=== PATIENT | female | born 1985 | race Hispanic/Latino ===

== ENCOUNTER 2017-02-27 12:34 | Emergency (ER) | payer SELFPAY ==
[2017-02-27 13:21] VITALS: BP 126/99
[2017-02-27 14:30] LABS: Bilirubin,Urine Negative (Negative); Blood,Urine Negative (Negative); Ketones,Urine Negative (Negative)
[2017-02-27 14:31] LABS: Bacteria,Urine 1+ /HPF (Negative); Leukocyte Esterase,Urine Moderate (Negative); Mucus,Urine 1+ /HPF; Nitrite,Urine Negative (Negative); Protein,Urine <15 mg/dL mg/dL (Negative); Urobilinogen,Urine < 2.0 mg/dL (<2.0)
[2017-02-27] MEDS ORDERED: NORCO 5/325 PO ONE (16:06)
--- NOTE | 2017-02-27 19:40 | Emergency Department Report ---
Entered by CHANDNI CROW, acting as scribe for DK RIVAS PA. ED Back Pain/Injury HPI - General Chief Complaint: Back Pain/Injury Stated Complaint: ARM/BACK PAIN Source: patient, family Mode of arrival: Ambulatory Limitations: No Limitations - History of Present Illness Initial Comments: 31 female with PMHx of hypertension, headaches and anxiety, presents to the ED c /o back pain beginning one month ago. 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 Associated symptoms include arm pain but denies fever, chills and bowel and bladder incontinence. Rates back pain 9/10 and arm pain 7/10 in severity. Patient describes pain in arm as "shooting muscles spam that move up her arm." Pain is back is cramping NKDA. Denies any abdominal pain. Denies any trauma or fall. Denies any urinary frequency urgency or burning. She says she did not take any medication for pain. Determined that she is allergic to ibuprofen. MD Complaint: back pain Onset/Timin -: Gradual, month(s) Similar Symptoms Previously: Yes Place: work Radiation: none Severity: severe Severity scale (0 -10): 9 Quality: burning Improves With: none Worsens With: none Context: while lifting, turning/twisting Associated Symptoms: other (arm pain). denies: confusion, weakness, chest pain , numbness, difficulty walking, cough, difficulty urinating, incontinence, fever /chills, constipation, headaches, abdominal pain, loss of appetite, malaise, nausea/vomiting, rash, seizure, shortness of breath, syncope - Related Data Previous Rx's Medication Instructions Recorded Last Taken Type Acetaminophen/Codeine [Tylenol #3] 1 tab PO Q6H PRN #20 tab 08/07/13 Unknown Rx Ondansetron [Zofran] 4 mg PO ONCE #20 tablet 08/07/13 Unknown Rx Sulfamethoxazole/Trimethoprim 1 each PO BID #14 tablet 02/27/17 Unknown Rx [Bactrim DS TAB] traMADol [Ultram] 50 mg PO Q6HR PRN #20 tablet 02/27/17 Unknown Rx Allergies Allergy/AdvReac Type Severity Reaction Status Date / Time No Known Allergies Allergy Unverified 08/07/13 09:45 ED Review of Systems Comment: All other systems reviewed and negative Constitutional: denies: chills, fever ENT: denies: throat pain, congestion Respiratory: no symptoms reported Cardiovascular: denies: chest pain, palpitations, edema, syncope Gastrointestinal: denies: abdominal pain, nausea, vomiting, diarrhea, constipation Genitourinary: denies: urgency, dysuria, frequency, hematuria, discharge, abnormal menses, dyspareunia, other (bladder incontinence) Musculoskeletal: back pain, other (arm pain) Skin: denies: rash Neurological: denies: headache, weakness, numbness, paresthesias, confusion, abnormal gait, vertigo ED Past Medical Hx - Past Medical History Previous Medical History?: Yes Hx Hypertension: Yes Hx CVA: No Hx Heart Attack/AMI: No Hx Congestive Heart Failure: No Hx Diabetes: No Hx Deep Vein Thrombosis: No Hx Pulmonary Embolism: No Hx GERD: No Hx Liver Disease: No Hx Renal Disease: No Hx of Cancer: No Hx Sickle Cell Disease: No Hx Arthritis: No Hx Headaches / Migraines: Yes Hx Seizures: No Hx Kidney Stones: No Hx Psychiatric Treatment: Yes (anxiety) Hx Asthma: No Hx COPD: No Hx Tuberculosis: No Hx Dementia: No - Surgical History Past Surgical History?: Yes Hx Coronary Stent: No Hx Open Heart Surgery: No Hx Pacemaker: No Hx Internal Defibrillator: No Hx Cholecystectomy: No Hx Appendectomy: No Hx Breast Surgery: No Additional Surgical History: x 1 - Family History Family history: hypertension - Social History Smoking Status: Current Every Day Smoker Substance Use Type: Alcohol - Medications Home Medications: Home Medications Medication Instructions Recorded Confirmed Last Taken Type Acetaminophen/Codeine [Tylenol #3] 1 tab PO Q6H PRN #20 tab 08/07/13 Unknown Rx Ondansetron [Zofran] 4 mg PO ONCE #20 tablet 08/07/13 Unknown Rx Sulfamethoxazole/Trimethoprim 1 each PO BID #14 tablet 02/27/17 Unknown Rx [Bactrim DS TAB] traMADol [Ultram] 50 mg PO Q6HR PRN #20 tablet 02/27/17 Unknown Rx ED Physical Exam - General Limitations: No Limitations General appearance: alert, in no apparent distress - Head Head exam: Present: atraumatic, normocephalic, normal inspection - Eye Eye exam: Present: normal appearance, PERRL, EOMI Pupils: Present: normal accommodation - ENT ENT exam: Present: normal exam, normal orophraynx, mucous membranes moist, TM's normal bilaterally, normal external ear exam - Neck Neck exam: Present: normal inspection, full ROM, other. Absent: tenderness, lymphadenopathy - Respiratory Respiratory exam: Present: normal lung sounds bilaterally. Absent: wheezes, rales, rhonchi, stridor, chest wall tenderness, accessory muscle use, decreased breath sounds, prolonged expiratory - Cardiovascular Cardiovascular Exam: Present: regular rate, normal rhythm, normal heart sounds - GI/Abdominal GI/Abdominal exam: Present: soft, normal bowel sounds. Absent: distended, tenderness, guarding, rebound, rigid - Extremities Exam Extremities exam: Present: normal inspection, full ROM, normal capillary refill , other (No CCE. +2 pulses. No neurovascular compromise.. Patient was brought 5/ 5 strength in all extremities. Normal sensation to extremities. Bilateral upper extremity and lower extremity without any deformity, rash or erythema. All joints are normal without any crepitus or effusion.). Absent: tenderness, pedal edema, joint swelling, calf tenderness - Back Exam Back exam: Present: normal inspection, full ROM. Absent: tenderness, CVA tenderness (R), CVA tenderness (L), muscle spasm, paraspinal tenderness, vertebral tenderness, rash noted - Expanded Back Exam Expanded Back exam: Absent: saddle anesthesia Back exam: Negative Straight Leg Raising: Left, Right - Neurological Exam Neurological exam: Present: alert, oriented X3, normal gait, reflexes normal. Absent: motor sensory deficit - Expanded Neurological Exam Expanded Neurological exam: Absent: innattentive, memory loss-remote event, memory loss- recent event, ataxia, receptive aphasia, expressive aphasia, total aphasia, tremor, protecting the airway Patient oriented to: Present: person, place, time Speech: Present: fluid speech Cranial nerves: EOM's Intact: Normal, Gag Reflex: Normal, Tongue Deviation: Normal, Nystagmus: Normal, Facial Sensation: Normal Cerebellar function: Romberg: Normal Upper motor neuron: Pronator Drift: Normal, Sensory Extinction: Normal Sensory exam: Upper Extremity Light Touch: Normal, Upper Extremity Pin Prick: Normal, Upper Extremity Temperature: Normal, UE 2 Point Discrimination: Normal, Lower Extremity Light Touch: Normal, Lower Extremity Pin Prick: Normal, Lower Extremity Temperature: Normal, LE 2 Point Discrimination: Normal Motor strength exam: RUE: 5, LUE: 5, RLE: 5, LLE: 5 DTR: bicep (R): 2+, bicep (L): 2+, tricep (R): 2+, tricep (L): 2+, knee (R): 2+ , knee (L): 2+, ankle (R): 2+, ankle (L): 2+ Best Eye Response ([place]): (4) open spontaneously Best Motor Response ([place]): (6) obeys commands Best Verbal Response ([place]): (5) oriented [place] Total: 15 - Psychiatric Psychiatric exam: Present: normal affect, normal mood - Skin Skin exam: Present: warm, dry, intact, normal color. Absent: rash ED Course Vital Signs 02/27/17 13:13 Temperature 97.9 F Pulse Rate 86 Respiratory 16 Rate Blood Pressure 126/99 Blood Pressure 126/99 [Right] O2 Sat by Pulse 100 Oximetry - Reevaluation(s) Reevaluation #2: 02/27/17 15:57 Given Carmen 5/325 2 tablets in emergency room for pain. ED Medical Decision Making - Lab Data Lab Results 02/27/17 Range/Units 13:36 Urine Color Yellow (Yellow) Urine Turbidity Slightly cloudy (Clear) Urine pH 5.0 (5.0-7.0) Ur Specific [place] 1.023 (1.003-1.030) Urine Protein <15 mg/dl (Negative) mg/dL Urine Glucose (UA) Negative (Negative) mg/dL Urine Ketones Negative (Negative) mg/dL Urine Blood Negative (Negative) Urine Nitrite Negative (Negative) Urine Bilirubin Negative (Negative) Urine Urobilinogen < 2.0 (<2.0) mg/dL Ur Leukocyte Esterase Moderate (Negative) Urine WBC (Auto) 9.0 H (0.0-6.0) /HPF Urine RBC (Auto) 6.0 (0.0-6.0) /HPF U Epithel Cells (Auto) 10.0 (0-13.0) /HPF Urine Bacteria (Auto) 1+ (Negative) /HPF Calcium Oxalate Crystal 3+ Urine Mucus 1+ /HPF Urine culture is pending - Medical Decision Making ED Course: With acute cystitis without hematuria. She is also musculoskeletal pain from lifting heavy object. Her back, extremity and logical exam is intact. The patient that she is urinary tract infection. She was given Carmen 5 /325 2 tablets emergency room for pain. Discussed with her that I'll put her on Ultram for her musculoskeletal pain and she needs to follow-up with her primary care physician for further evaluation and treatment of pain. I also encouraged her to follow up with orthopedic doctor. Patient says she does not have any insurance side to follow-up with [facility] and I will be placing her on Bactrim since she cannot afford Macrobid and Bactrim is straight topics. Patient discharged home with family and prescription for Bactrim DS and tramadol. ED Disposition Clinical Impression: Acute cystitis without hematuria, Musculoskeletal pain of extremity Back pain Qualifiers: Back pain location: low back pain Chronicity: acute Back pain laterality: bilateral Sciatica presence: without sciatica Qualified Code(s): M54.5 - Low back pain Disposition: DISCHARGED TO HOME OR SELFCARE Is pt being admited?: No Does the pt Need Aspirin: No Condition: Stable Instructions: Urinary Tract Infection in Women (ED), Musculoskeletal Pain (ED) , Back Pain (ED) Additional Instructions: Take antibiotic for urinary tract infection as discussed. Medications. [facility] decaying get prescription filled at [facility] Increase fluid intake to 2-3 L of fluid per day. Prescriptions: Sulfamethoxazole/Trimethoprim [Bactrim DS TAB] 1 each PO BID #14 tablet traMADol [Ultram] 50 mg PO Q6HR PRN #20 tablet PRN Reason: Pain Referrals: [facility] [Outside] - 3-5 Days OPHELIA RECINOS MD [Staff Physician] - 3-5 Days Forms: Work/School Release Form(ED) This documentation as recorded by the MIGNON wilson ELIZABETH,accurately reflects the service I personally performed and the decisions made by me,DK RIVAS PA.
== END 2017-02-27 16:47 | disposition home or self-care (01) ==
LOC: ED 12:34
DX: N30.00 Acute cystitis without hematuria (principal); M54.5 Low back pain; M79.629 Pain in unspecified upper arm; I10 Essential (primary) hypertension; F41.9 Anxiety disorder, unspecified; F17.200 Nicotine dependence, unspecified, uncomplicated
CPT/HCPCS: 81001; 87086; 99283

== ENCOUNTER 2019-10-22 00:47 | Emergency (ER) | payer SELFPAY | END 2019-10-22 01:21 | disposition left against medical advice (07) | LOC: ED 00:47 | DX: Z00.8 Encounter for other general examination (principal); Z53.21 Procedure and treatment not carried out due to patient leaving prior to being seen by health care provider ==